=== PATIENT | female | born 1965 | race American Indian/Alaskan Native ===

== ENCOUNTER 2016-06-15 09:37 | Emergency (ER) | payer BC ==
[2016-06-15 09:51] VITALS: BP 151/97
--- NOTE | 2016-06-15 13:59 | Emergency Department Report ---
Entered by HOSEA ORTIZ, acting as scribe for SARIKA AVALOS PA. ED Fall HPI - General Chief Complaint: Fall Stated Complaint: FALL/NECK/BACK /RT LEG/RT ARM PAIN Time Seen by Provider: 06/15/16 10:45 Source: patient Mode of arrival: Ambulatory - History of Present Illness Initial Comments: 50 y/o female presents with aching, left shoulder pain, left foot pain, right knee pain and neck pain as a result of falling from a chair after it broke yesterday. She noticed the pain after waking up this morning and pain is worsened by movement. Pt denies any N/V, fever or WALTERS. No additional Sx. MD Complaint: fall -: days(s) (1) Fall From: chair When Fall Occurred: # days LOGISTICS LEAD (1), other Place Fall Occurred: home Loss of Consciousness: none Prolonged Down Time?: no Symptoms Prior to Fall: none Location: neck (pain), other (left shoulder, left foot and right knee pain) Location - Extremities: Left: Shoulder, Foot, Right: Knee Severity: mild Quality: aching Context: other (chair broke) Associated Symptoms: neck pain - Related Data Home Medications Medication Instructions Recorded Confirmed Last Taken Diclofenac Sodium 75 mg PO 4XD PRN 06/15/16 06/15/16 Unknown Lisinopril [Zestril TAB] 10 mg PO QDAY 06/15/16 06/15/16 06/14/16 08:00 Omeprazole Magnesium [PriLOSEC Otc] 20 mg PO QDAY 06/15/16 06/15/16 06/15/16 07: 00 Triamter/Hctz 37.5-25 mg 1 tab PO QDAY 06/15/16 06/15/16 06/14/16 09:00 [Maxzide-25] Zolpidem [Ambien] 10 mg PO QHS 06/15/16 06/15/16 06/14/16 22:00 Previous Rx's Medication Instructions Recorded Last Taken Type HYDROcodone/APAP 5-325 [[place] 1 each PO Q6HR PRN #12 tablet 06/15/16 Unknown Rx 5/325] methOCARBAMOL [Robaxin TAB] 500 mg PO BID #30 tab 06/15/16 Unknown Rx Allergies Allergy/AdvReac Type Severity Reaction Status Date / Time Sulfa (Sulfonamide Allergy Hives Verified 06/15/16 09:42 Antibiotics) guaifenesin [From Maxifed] AdvReac SVT Verified 06/15/16 09:43 pseudoephedrine HCl AdvReac SVT Verified 06/15/16 09:43 [From Maxifed] POLYHISTINE DM AdvReac SVT Uncoded 06/15/16 09:42 ED Review of Systems Comment: All other systems reviewed and negative Constitutional: denies: chills, fever Gastrointestinal: denies: nausea, vomiting, diarrhea Neurological: denies: headache ED Past Medical Hx - Past Medical History Hx Hypertension: Yes Hx GERD: Yes Additional medical history: INSOMNIA. SVT. BOWEL OBSTRUCTIONS - Surgical History Hx Cholecystectomy: Yes Additional Surgical History: X 2. CARDIAC ABLATION. BOWEL RESECTIONS X 2. HYSTERECTOMY - Social History Smoking Status: Never Smoker Substance Use Type: None - Medications Home Medications: Home Medications Medication Instructions Recorded Confirmed Last Taken Type Diclofenac Sodium 75 mg PO 4XD PRN 06/15/16 06/15/16 Unknown History HYDROcodone/APAP 5-325 [[place] 1 each PO Q6HR PRN #12 tablet 06/15/16 Unknown Rx 5/325] Lisinopril [Zestril TAB] 10 mg PO QDAY 06/15/16 06/15/16 06/14/16 08:00 History Omeprazole Magnesium [PriLOSEC Otc] 20 mg PO QDAY 06/15/16 06/15/16 06/15/16 07: 00 History Triamter/Hctz 37.5-25 mg 1 tab PO QDAY 06/15/16 06/15/16 06/14/16 09:00 History [Maxzide-25] Zolpidem [Ambien] 10 mg PO QHS 06/15/16 06/15/16 06/14/16 22:00 History methOCARBAMOL [Robaxin TAB] 500 mg PO BID #30 tab 06/15/16 Unknown Rx ED Physical Exam - General Limitations: No Limitations - Other Other exam information: GENERAL: Patient is alert and oriented x 3. No apparent distress, normal gait, atraumatic. HEAD: Head is normocephalic and atraumatic. EYES: Extraocular movements are intact. NECK: Supple. Non edematous, no carotid bruits. No lymphadenopathy or thyromegaly. TTP on left sternocleidomastoid, pain with rotation to the right. Full ROM. No C-spine tenderness LUNGS: Symmetrical with respiration. No wheezing, rales or crackles, CTAB. HEART: Regular rate and rhythm with normal S1/S2 present. No murmurs, rubs, or gallops. ABDOMEN: Soft, nondistended. Nontender to palpation on all quadrants. No organomegaly was noted. Positive bowel sounds. No CVA tenderness. EXTREMITIES/MUSCULOSKELETAL: No cyanosis, clubbing, rash, lesions or edema. Full ROM bilaterally. UE Pulses 2+ bilaterally. LE and UE 5+ strength bilaterally. From grasp bilaterally SKIN: Warm and dry. No lesions, ulceration or induration present NEUROLOGIC: No focal deficit. ED Course Vital Signs 06/15/16 09:48 Temperature 98.0 F Pulse Rate 89 Respiratory 19 Rate Blood Pressure 151/97 O2 Sat by Pulse 98 Oximetry ED Medical Decision Making - Medical Decision Making Discussed with patient to follow up with PCP as referred, and to return to the ED if her symptoms return or worsen. Patient states understanding and will follow instructions. Vital signs stable, patient is in no acute distress. ED Disposition Clinical Impression: Myalgia, Fall as cause of accidental injury in home as place of occurrence Disposition: DISCHARGED TO HOME OR SELFCARE Is pt being admited?: No Does the pt Need Aspirin: No Condition: Stable Instructions: Trigger Point Pain (ED), Musculoskeletal Pain (ED), Heat Pack Application (ED) Prescriptions: HYDROcodone/APAP 5-325 [[place] 5/325] 1 each PO Q6HR PRN #12 tablet PRN Reason: Pain methOCARBAMOL [Robaxin TAB] 500 mg PO BID #30 tab Referrals: PRIMARY CAREMD [Primary Care Provider] - 3-5 Days NIKA OTERO MD [Referring] - 3-5 Days [facility] [Outside] - 3-5 Days [facility] [Outside] - 3-5 Days [facility] [Outside] - 3-5 Days Forms: Work/School Release Form(ED) Time of Disposition: 11:11 This documentation as recorded by the DIANA zamora RYAN,accurately reflects the service I personally performed and the decisions made by BAILEY aguero OYINLOLA A, PA.
== END 2016-06-15 11:35 | disposition home or self-care (01) ==
LOC: ED 09:37
DX: M79.1 Myalgia (principal); I10 Essential (primary) hypertension; K21.9 Gastro-esophageal reflux disease without esophagitis; Z90.49 Acquired absence of other specified parts of digestive tract; Z90.710 Acquired absence of both cervix and uterus; Z88.2 Allergy status to sulfonamides; Z88.8 Allergy status to other drugs, medicaments and biological substances; W07.XXXA Fall from chair, initial encounter; Y93.89 Activity, other specified; Y99.8 Other external cause status; Y92.098 Other place in other non-institutional residence as the place of occurrence of the external cause
CPT/HCPCS: 99282